=== PATIENT | male | born 1995 | race American Indian/Alaskan Native ===

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

== ENCOUNTER 2017-05-23 19:32 | Emergency (ER) | payer OTHER ==
[~2017-05-23] VITALS: Ht 175.3 cm; Wt 66.2 kg
[2017-05-23 19:42] VITALS: TEMP 36.7; Ht 175.3 cm; Wt 66.2 kg
[2017-05-23] MEDS ORDERED: OPTIRAY 320 IV PRN (21:00)
[2017-05-23 21:15] LABS: BASO % 0.1 %; BASO ABS # 0.01 K/uL (0-0.2); EOS % 12.7 %; EOS ABS # 0.95 K/uL (0-0.5); HEMATOCRIT 43.9 % (42-52); HEMOGLOBIN 15.6 g/dL (14.0-18.0); IG# 0.01 K/uL (0.00-0.02); LYMPH % 42.1 %; LYMPH ABS # 3.14 K/uL (1.2-3.4); MEAN CELL VOLUME 83.5 fL (80-100); MEAN CORPUSCULAR HEMOGLOBIN 29.7 pg (25-34); MEAN CORPUSCULAR HGB CONC 35.5 g/dl (32-36); MEAN PLATELET VOLUME 10.3 fL (7.4-10.4); MONO ABS # 0.52 K/uL (0.11-0.59); NEUT ABS # 2.83 K/uL (1.4-6.5); PLATELET COUNT 209 K/uL (130-400); RED CELL DISTRIBUTION WIDTH CV 13.1 % (11.5-14.5); RED CELL DISTRIBUTION WIDTH SD 39.7 fL (36.4-46.3); WHITE BLOOD COUNT 7.46 K/uL (4.8-10.8)
[2017-05-23 21:38] LABS: ALBUMIN 4.4 gm/dl (3.4-5.0); CALCIUM 9.4 mg/dl (8.5-10.1); CREATININE 1.04 mg/dl (0.60-1.40); POTASSIUM 3.5 mmol/L (3.5-5.1)
--- NOTE | 2017-05-23 22:44 | DIAGNOSTIC IMAGING REPORT ---
CT OF THE ABDOMEN AND PELVIS WITH CONTRAST CLINICAL HISTORY: Abdominal pain. COMPARISON STUDY: None. TECHNIQUE: Following IV administration of 93 mL of Optiray-320, axial images of the abdomen and pelvis were obtained from the lung bases to the proximal femurs. Images were reviewed in the axial, sagittal, and coronal planes. IV contrast was administered without complication. A dose lowering technique was utilized adhering to the principles of ALARA. CT DOSE: 266.35 mGy.cm FINDINGS: Lung bases are clear. The liver, spleen, adrenal glands, kidneys and pancreas are unremarkable. There is no biliary or pancreatic ductal dilatation. No pneumatosis, free air or portal venous gas is present. There may be trace fluid within the pelvis. There is no evidence for a bowel obstruction. The appendix is normal. There are multiple mildly enlarged mesenteric lymph nodes which measure up to 1.3 cm in short axis diameter. No suspicious osseous lesions are present. IMPRESSION: 1. Normal appendix. No bowel obstruction. 2. Multiple mildly enlarged mesenteric lymph nodes which may be reactive or reflect mesenteric adenitis. A lymphoproliferative process is considered less likely however a follow-up CT of the abdomen and pelvis in 2 months is recommended. 3. Suspected trace fluid within the pelvis. Electronically signed by: Galindo Marinelli M.D. 05/23/2017 10:43 PM Dictated Date/Time: 05/23/2017 10:38 PM
[2017-05-23 23:41] VITALS: BP 120/72; PULSE 68; O2SAT 99
--- NOTE | 2017-05-24 00:31 | EMERGENCY ROOM VISIT NOTE ---
History Report prepared by Marissa: Jose Zamorano Under the Supervision of: Dr. Joe Chavez M.D. First contact with patient: 20:42 Chief Complaint: ABDOMINAL PAIN Stated Complaint: STOMACH ACHE Nursing Triage Summary: mid abdominal pain, sometimes just on the right History of Present Illness The patient is a 21 year old male who presents to the Emergency Room with complaints of a persistent "stomach ache" that he has been experiencing for the past 3 days. Pain is located in the right lower quadrant, moderate in nature. The patient did visit with [facility] prior to this visit who sent him to the ED for imaging to rule out appendicitis. The patient denies any fevers, vomiting, blood in the stool, melena, hematuria, testicular pain, or penile discharge. Source of History: patient Onset: 3 days [employer] Position: abdomen Quality: other (Stomach Ache) Timing: other (Persistent) Associated Symptoms: No vomiting, No melena, No urinary symptoms Review of Systems See HPI for pertinent positives and negatives. A total of ten systems were reviewed and were otherwise negative. Past Medical & Surgical Patient denies histories Family History Diabetes mellitus FHx: heart disease Hypertension Social History Smoking Status: Never Smoker Marital Status: single Housing Status: lives with family Occupation Status: student Allergies Coded Allergies: No Known Allergies (Unverified , 03/04/16) Physical Exam Vital Signs Date Time Temp Pulse Resp B/P (MAP) Pulse Ox O2 Delivery O2 Flow Rate FiO2 05/23/17 23:41 68 16 120/72 99 05/23/17 21:36 70 16 128/70 99 Room Air 05/23/17 19:42 36.7 60 16 136/82 99 Room Air Physical Exam Physical Exam GENERAL: He is oriented to person, place, and time. He appears well-developed and well-nourished. He does not appear distressed. ____ HENT: Exam performed. Head: Normocephalic and atraumatic. Right Ear: External ear normal. No mastoid tenderness. Left Ear: External ear normal. No mastoid tenderness. Mouth/Throat: The oropharynx is clear and moist. No trismus in the jaw. No dental abscesses or uvula swelling. No oropharyngeal exudate or tonsillar abscesses. ____ EYES: Conjunctivae and EOM are normal. Pupils are equal, round, and reactive to light. Right eye exhibits no discharge. Left eye exhibits no discharge. No scleral icterus. ____ NECK: Normal range of motion. Neck supple. No JVD present. No spinous process tenderness present. No carotid bruit present. No rigidity. No tracheal deviation and normal range of motion present. No Brudzinski's sign and no Kernig 's sign noted. ____ CV: Normal rate, regular rhythm, normal heart sounds and intact distal pulses. There is no peripheral edema. Palpable radial pulses bue. ____ PULM/CHEST: Effort normal and breath sounds normal. No respiratory distress. No stridor. He has no wheezes. He has no rales. Chest Wall: He exhibits no tenderness. ____ ABD: The abdomen is soft. Bowel sounds are normal. He has no distension. No mass is present. There pain on palpation of the epigastric and RLQ area. There is no rebound, no guarding, no Tirado's sign. Rovsig negative MUSC/SKEL: Normal range of motion. There is no peripheral edema, tenderness or deformity. LYMPH: No cervical adenopathy. ____ NEURO: He is alert and oriented to person, place, and time. He has normal strength. No cranial nerve deficit or sensory deficit. Coordination and gait normal. GCS eye subscore is 4. GCS verbal subscore is 5. GCS motor subscore is 6. Cerebellar tests wnl. ____ SKIN: Skin is warm and dry. HE is not diaphoretic. ____ PSYCH: He has a normal mood and affect. His behavior is normal. Judgment and thought content normal. ____ Medical Decision & Procedures ER Provider Diagnostic Interpretation: Radiology results as stated below per my review and radiologist interpretation: CT OF THE ABDOMEN AND PELVIS WITH CONTRAST CLINICAL HISTORY: Abdominal pain. COMPARISON STUDY: None. TECHNIQUE: Following IV administration of 93 mL of Optiray-320, axial images of the abdomen and pelvis were obtained from the lung bases to the proximal femurs. Images were reviewed in the axial, sagittal, and coronal planes. IV contrast was administered without complication. A dose lowering technique was utilized adhering to the principles of ALARA. CT DOSE: 266.35 mGy.cm FINDINGS: Lung bases are clear. The liver, spleen, adrenal glands, kidneys and pancreas are unremarkable. There is no biliary or pancreatic ductal dilatation. No pneumatosis, free air or portal venous gas is present. There may be trace fluid within the pelvis. There is no evidence for a bowel obstruction. The appendix is normal. There are multiple mildly enlarged mesenteric lymph nodes which measure up to 1.3 cm in short axis diameter. No suspicious osseous lesions are present. IMPRESSION: 1. Normal appendix. No bowel obstruction. 2. Multiple mildly enlarged mesenteric lymph nodes which may be reactive or reflect mesenteric adenitis. A lymphoproliferative process is considered less likely however a follow-up CT of the abdomen and pelvis in 2 months is recommended. 3. Suspected trace fluid within the pelvis. Electronically signed by: Galindo Marinelli M.D. 05/23/2017 10:43 PM Dictated Date/Time: 05/23/2017 10:38 PM Laboratory Results 05/23/17 21:00 Red Blood Count 5.26, Mean Corpuscular Volume 83.5, Mean Corpuscular Hemoglobin 29.7, Mean Corpuscular Hemoglobin Concent 35.5, Mean Platelet Volume 10.3, Neutrophils (%) (Auto) 38.0, Lymphocytes (%) (Auto) 42.1, Monocytes (%) (Auto) 7.0, Eosinophils (%) (Auto) 12.7, Basophils (%) (Auto) 0.1, Neutrophils # (Auto ) 2.83, Lymphocytes # (Auto) 3.14, Monocytes # (Auto) 0.52, Eosinophils # (Auto ) 0.95, Basophils # (Auto) 0.01 05/23/17 21:00 Test 05/23/17 21:00 05/23/17 22:55 White Blood Count 7.46 K/uL (4.8-10.8) Red Blood Count 5.26 M/uL (4.7-6.1) Hemoglobin 15.6 g/dL (14.0-18.0) Hematocrit 43.9 % (42-52) Mean Corpuscular Volume 83.5 fL (80-100) Mean Corpuscular Hemoglobin 29.7 pg (25-34) Mean Corpuscular Hemoglobin Concent 35.5 g/dl (32-36) Platelet Count 209 K/uL (130-400) Mean Platelet Volume 10.3 fL (7.4-10.4) Neutrophils (%) (Auto) 38.0 % Lymphocytes (%) (Auto) 42.1 % Monocytes (%) (Auto) 7.0 % Eosinophils (%) (Auto) 12.7 % Basophils (%) (Auto) 0.1 % Neutrophils # (Auto) 2.83 K/uL (1.4-6.5) Lymphocytes # (Auto) 3.14 K/uL (1.2-3.4) Monocytes # (Auto) 0.52 K/uL (0.11-0.59) Eosinophils # (Auto) 0.95 K/uL (0-0.5) Basophils # (Auto) 0.01 K/uL (0-0.2) RDW Standard Deviation 39.7 fL (36.4-46.3) RDW Coefficient of Variation 13.1 % (11.5-14.5) Immature Granulocyte % (Auto) 0.1 % Immature Granulocyte # (Auto) 0.01 K/uL (0.00-0.02) Anion Gap 8.0 mmol/L (3-11) Est Creatinine Clear Calc Drug Dose 107.0 ml/min Estimated GFR () 120.1 Estimated GFR (Non- 103.6 BUN/Creatinine Ratio 10.0 (10-20) Calcium Level 9.4 mg/dl (8.5-10.1) Total Bilirubin 0.3 mg/dl (0.2-1) Direct Bilirubin 0.1 mg/dl (0-0.2) Aspartate Amino Transf (AST/SGOT) 14 U/L (15-37) Alanine Aminotransferase (ALT/SGPT) 25 U/L (12-78) Alkaline Phosphatase 69 U/L (45-117) Total Protein 8.0 gm/dl (6.4-8.2) Albumin 4.4 gm/dl (3.4-5.0) Lipase 132 U/L (73-393) Urine Color YELLOW Urine Appearance CLEAR (CLEAR) Urine pH 7.5 (4.5-7.5) Urine Specific [place] 1.042 (1.000-1.030) Urine Protein NEG (NEG) Urine Glucose (UA) NEG (NEG) Urine Ketones NEG (NEG) Urine Occult Blood NEG (NEG) Urine Nitrite NEG (NEG) Urine Bilirubin NEG (NEG) Urine Urobilinogen NEG (NEG) Urine Leukocyte Esterase NEG (NEG) Laboratory results reviewed by pr ED Course 2049: The patient was evaluated in room A11B. A complete history and physical exam was performed. 2306: The patient's vital signs are stable. Labs within normal limits, the CT study shows no appendicitis, mesenteric adenitis. The patient was made aware. DISCHARGE - Plan of care discussed with patient and questions answered. The patient was given both verbal and printed discharge instructions. The patient verbalized understanding and ability to comply. The patient is to seek outpatient follow up as noted in the discharge instructions. The patient verbalized understanding and ability to comply. The patient is discharged in stable condition. The patient was instructed to return for worsening symptoms. Medical Decision The patient's vital signs are stable. Labs within normal limits, the CT study shows no appendicitis, mesenteric adenitis. The patient was made aware. DISCHARGE - Plan of care discussed with patient and questions answered. The patient was given both verbal and printed discharge instructions. The patient verbalized understanding and ability to comply. The patient is to seek outpatient follow up as noted in the discharge instructions. The patient verbalized understanding and ability to comply. The patient is discharged in stable condition. The patient was instructed to return for worsening symptoms. Medication Reconcilliation Current Medication List: was personally reviewed by me Blood Pressure Screening Patient's blood pressure: Normal blood pressure Impression Primary Impression: Abdominal pain Scribe Attestation The scribe's documentation has been prepared under my direction and personally reviewed by me in its entirety. I confirm that the note above accurately reflects all work, treatment, procedures, and medical decision making performed by me. The patient's vital signs are stable. Labs within normal limits, the CT study shows no appendicitis, mesenteric adenitis. The patient was made aware. DISCHARGE - Plan of care discussed with patient and questions answered. The patient was given both verbal and printed discharge instructions. The patient verbalized understanding and ability to comply. The patient is to seek outpatient follow up as noted in the discharge instructions. The patient verbalized understanding and ability to comply. The patient is discharged in stable condition. The patient was instructed to return for worsening symptoms. Departure Information Dispostion Home / Self-Care Referrals No Doctor, Assigned (PCP) Patient Instructions My [facility] Problem Qualifiers Primary Impression: Abdominal pain Abdominal location: right lower quadrant Qualified Codes: R10.31 - Right lower quadrant pain
== END 2017-05-23 23:43 | disposition home or self-care (01) ==
LOC: C.EDB 19:34 → C.EDA 23:43
DX: R10.13 Epigastric pain (principal); R10.31 Right lower quadrant pain; Z83.3 Family history of diabetes mellitus; Z82.49 Family history of ischemic heart disease and other diseases of the circulatory system